=== PATIENT | male | born 1980 | race Caucasian/White ===

== ENCOUNTER 2022-10-26 18:56 | Emergency (ER) | payer OTHER, SELFPAY ==
[2022-10-26] VITALS (7 sets, daily range): BP systolic 132–152; BP diastolic 74–104; PULSE 85–114; RESP 12–21; TEMP 36.9; O2SAT 96–98; BMI 38.0
--- NOTE | 2022-10-26 19:06 | DI.RAD.S_ITS ---
PROCEDURE: XR CHEST 1V INDICATIONS: chest pain TECHNIQUE: One view of the chest was acquired. COMPARISON: None. FINDINGS: Surgical changes and devices: None. Lungs and pleura: Lungs are clear. No pleural effusions or pneumothorax. Mediastinum: Mediastinal contours appear normal. Heart size is normal. Bones and chest wall: No suspicious bony lesions. Overlying soft tissues appear unremarkable. IMPRESSION: No acute cardiopulmonary abnormality. Dictated by: Star Hinojosa M.D. on 10/26/2022 at 20:24 Approved by: Star Hinojosa M.D. on 10/26/2022 at 20:24
[2022-10-26] MEDS: ASPIRIN 81 MG CHEW TAB 324 MG PO (19:09)
[2022-10-26 19:41] LABS: Add Manual Diff / Slide Review NO; Basophils Absolute Auto 100 /uL (0-100); Basophils Percent Auto 0.6 % (0-2); Eosinophils Absolute Auto 200 /uL (0-450); Eosinophils Percent Auto 1.5 % (2-4); Hematocrit 42.5 % (41-53); Hemoglobin 14.7 g/dL (13.5-17.5); Lymphocytes Absolute Auto 3900 /uL (1100-4500); Lymphocytes Percent Auto 35.7 % (25-40); Mean Corpuscular HGB Conc 34.7 % (30-36); Mean Corpuscular Hemoglobin 29.6 PG (26-34); Mean Corpuscular Volume 85.3 fL (80-100); Monocytes Absolute Auto 500 /uL (0-900); Monocytes Percent Auto 4.5 % (3-14); Neutrophils Absolute Auto 6300 /uL (1500-7000); Neutrophils Percent Auto 57.7 % (50-75); Platelet Count 264 X10^3/uL (150-400); Red Blood Cell Count 4.98 X10^6/uL (4.5-5.9); Red Cell Distribution Width 13.7 % (11.6-14.8); White Blood Cell Count 10.9 X10^3/uL (4.5-11.0)
[2022-10-26 19:53] LABS: Alanine Aminotransferase 36 IU/L (<50); Albumin 4.2 g/dL (3.5-5.0); Albumin Globulin Ratio 1.4 (1.0-2.8); Alkaline Phosphatase 66 U/L (38-126); Aspartate Aminotransferase 30 IU/L (17-59); BUN Creatinine Ratio 6.9 (6-22); Blood Urea Nitrogen 7 mg/dL (9-20); Calcium 9.2 mg/dL (8.4-10.2); Carbon Dioxide 25 mmol/L (22-32); Chloride 101 mmol/L (98-107); Creatine Kinase 87 U/L (55-170); Estimated Glomerular Filt Rate > 60 mL/min (>60); Globulin 3.1 g/dL (1.7-4.1); Glucose 130 mg/dL (70-100); HEMOLYSIS < 15 (0-50); Lipase 178 U/L (23-300); Magnesium 1.7 mg/dL (1.6-2.3); Potassium 3.2 mmol/L (3.4-5.1); Sodium 137 mmol/L (137-145); Total Protein 7.3 g/dL (6.3-8.2)
[2022-10-26 19:57] LABS: PTT Partial Thromboplastin Tim 31 SECONDS (26-36)
[2022-10-26 20:04] LABS: Troponin I < 0.012 ng/mL (0.01-0.034)
[2022-10-26 20:49] LABS: COVID19 -Nasal RAPID Negative (Negative)
--- NOTE | 2022-10-26 22:02 | PC.NURSE ---
reports current migraine, has history of migraines gets about 15 a month. Patient states it feels slightly mild for his migraines. Patient reports left chest pain radiates into left arm, neck and down to left middle finger. Denies recent injury or trauma but does have remote history of left pectoral muscle injury and has a chronic left chest pain which feels different then current chest pain. Denies SOB or diaphoresis.
[2022-10-26 22:38] LABS: Troponin I < 0.012 ng/mL (0.01-0.034)
--- NOTE | 2022-10-26 23:05 | ED.CHESTPAIN ---
HPI - Chest Pain General Chief Complaint: Chest Pain Stated Complaint: poss heart attack Time Seen by Provider: 10/26/22 23:04 Source: patient Mode of arrival: Ambulatory Limitations: no limitations History of Present Illness HPI narrative: Patient is a 42-year-old male history of hyperlipidemia, nightmares, anxiety presenting today with chest discomfort. He reports lying on his bed on the left side reading a book when he suddenly got sternal pain. Radiated over to the left side. Comes and goes lasting 5 minutes at a time. Sharp stabbing in nature. He reports receiving aspirin in the emergency department. He is not short of breath. He feels a little bit nauseous no vomiting. No headache. No abdominal pain. He is a former smoker he smoked for about 20 years a pack a day but quit 5 years ago. No family history acute coronary disease. Related Data Home Medications Medication Instructions Recorded Confirmed amitriptyline 10/26/22 atorvastatin 10 mg tablet mg PO BEDTIME 10/26/22 omeprazole 20 mg capsule,delayed 20 mg PO DAILY 10/26/22 10/26/22 release prazosin 2 mg capsule 6 mg PO BEDTIME 10/26/22 10/26/22 Allergies Allergy/AdvReac Type Severity Reaction Status Date / Time diphenhydramine Allergy Swelling Verified 10/26/22 18:59 [From Benadryl] of Lip/Tongue/Throat Review of Systems Review of Systems ROS Unobtainable: All systems reviewed & are unremarkable except as noted in HPI and below Patient History Social History Smoking Status: Current every day smoker Smoking Status: Current every day smoker tobacco type: vaping alcohol intake frequency: holidays/special occasions only Substance Use Type: marijuana Exam Initial Vital Signs Initial Vital Signs: Vital Signs Temperature 98.4 F 10/26/22 18:59 Pulse Rate 114 H 10/26/22 18:59 Respiratory Rate 20 10/26/22 18:59 Blood Pressure 152/104 H 10/26/22 18:59 Pulse Oximetry 97 10/26/22 18:59 Oxygen Delivery Method Room Air 10/26/22 18:59 GENERAL: Alert pleasant 42-year-old HEENT: Head atraumatic,EOMI, pupils reactive, face symmetric, moist mucous membranes CARDIOVASCULAR: Regular rate and rhythm without murmurs, rubs or gallops. Pain is not reproducible RESPIRATORY: Breath sounds equal bilaterally, no wheezes rales or rhonchi. ABDOMEN: Soft, nontender. Normoactive bowel sounds all 4 quadrants. No guarding or rebound. EXTREMITIES: Normal range of motion, no clubbing or edema. Neurovascularly intact NEUROLOGICAL: Alert and oriented x4. SKIN: Warm, dry, no laceration, no petechiae, no rashes or lesions. Scores HEART Score Heart Score history: Slightly Suspicious Heart Score EKG: Normal Heart Score Age: < 45 years old Heart Score risk factors: 1-2 risk factors Heart Score troponin: < or = to normal limit Heart Score Total: 1 Course Orders Ordered: ED Orders 10/26/22 21:58 Troponin I Stat 10/26/22 23:16 EKG-12 Lead Stat Discontinued Medications Aspirin (Aspirin 81 Mg Chew Tab) 324 mg PO NOW ONE Stop: 10/26/22 19:07 Last Admin: 10/26/22 19:09 Dose: 324 mg Documented By: LIONEL Ketorolac Tromethamine (Ketorolac 30 Mg/Ml Vial) 15 mg IV NOW ONE Stop: 10/26/22 23:20 Last Admin: 10/26/22 23:55 Dose: 15 mg Documented By: CROW Vital Signs Vital signs: Vital Signs - 8 hr 10/26/22 22:03 10/26/22 22:33 10/26/22 23:00 Pulse Rate 92 H 93 H Respiratory Rate 12 12 Blood Pressure 136/85 145/88 H Pulse Oximetry 98 97 Oxygen Delivery Method Room Air 10/26/22 23:00 10/26/22 23:30 10/26/22 23:31 Pulse Rate 93 H 87 86 Respiratory Rate 17 18 21 Blood Pressure Pulse Oximetry 97 96 96 Oxygen Delivery Method Room Air Room Air 10/26/22 23:31 10/26/22 23:34 10/26/22 23:34 Pulse Rate 85 Respiratory Rate 17 Blood Pressure 132/74 142/79 H Pulse Oximetry 96 Oxygen Delivery Method 10/27/22 00:00 10/27/22 00:00 10/27/22 00:02 Pulse Rate 87 Respiratory Rate 18 Blood Pressure 135/83 127/80 Pulse Oximetry 96 Oxygen Delivery Method Room Air 10/27/22 00:02 Pulse Rate 86 Respiratory Rate 15 Blood Pressure Pulse Oximetry 95 Oxygen Delivery Method MDM - Chest Pain Lab Data 10/26/22 19:20 10/26/22 19:20 Labs: Lab Results 10/26/22 10/26/22 10/26/22 Range/Units 19:20 19:20 19:20 WBC 10.9 (4.5-11.0) X10^3/uL RBC 4.98 (4.5-5.9) X10^6/uL Hgb 14.7 (13.5-17.5) g/dL Hct 42.5 (41-53) % MCV 85.3 (80-100) fL MCH 29.6 (26-34) PG MCHC 34.7 (30-36) % RDW 13.7 (11.6-14.8) % Plt Count 264 (150-400) X10^3/uL Neut % (Auto) 57.7 (50-75) % Lymph % (Auto) 35.7 (25-40) % [place] % (Auto) 4.5 (3-14) % Eos % (Auto) 1.5 L (2-4) % Baso % (Auto) 0.6 (0-2) % Neut # (Auto) 6300 (7221-1674) /uL Lymph # (Auto) 3900 (3045-7254) /uL [place] # (Auto) 500 (0-900) /uL Eos # (Auto) 200 (0-450) /uL Baso # (Auto) 100 (0-100) /uL PT 12.0 (10.1-12.7) SECONDS INR 1.0 (0.9-1.3) APTT 31 (26-36) SECONDS Sodium 137 (137-145) mmol/L Potassium 3.2 L (3.4-5.1) mmol/L Chloride 101 (98-107) mmol/L Carbon Dioxide 25 (22-32) mmol/L BUN 7 L (9-20) mg/dL Creatinine 1.02 (0.66-1.25) mg/dL Estimated GFR > 60 (>60) mL/min BUN/Creatinine Ratio 6.9 (6-22) Glucose 130 H (70-100) mg/dL Calcium 9.2 (8.4-10.2) mg/dL Magnesium 1.7 (1.6-2.3) mg/dL Total Bilirubin 1.0 (0.2-1.3) mg/dL AST 30 (17-59) IU/L ALT 36 (<50) IU/L Alkaline Phosphatase 66 (38-126) U/L Total Creatine Kinase 87 (55-170) U/L CK-MB (CK-2) TNP CK-MB (CK-2) Rel Index TNP Troponin I < 0.012 (0.01-0.034) ng/mL Total Protein 7.3 (6.3-8.2) g/dL Albumin 4.2 (3.5-5.0) g/dL Globulin 3.1 (1.7-4.1) g/dL Albumin/Globulin Ratio 1.4 (1.0-2.8) Lipase 178 (23-300) U/L SARS-CoV-2 (PCR) (Negative) 10/26/22 10/26/22 Range/Units 19:42 21:58 WBC (4.5-11.0) X10^3/uL RBC (4.5-5.9) X10^6/uL Hgb (13.5-17.5) g/dL Hct (41-53) % MCV (80-100) fL MCH (26-34) PG MCHC (30-36) % RDW (11.6-14.8) % Plt Count (150-400) X10^3/uL Neut % (Auto) (50-75) % Lymph % (Auto) (25-40) % [place] % (Auto) (3-14) % Eos % (Auto) (2-4) % Baso % (Auto) (0-2) % Neut # (Auto) (8970-5542) /uL Lymph # (Auto) (6525-2561) /uL [place] # (Auto) (0-900) /uL Eos # (Auto) (0-450) /uL Baso # (Auto) (0-100) /uL PT (10.1-12.7) SECONDS INR (0.9-1.3) APTT (26-36) SECONDS Sodium (137-145) mmol/L Potassium (3.4-5.1) mmol/L Chloride (98-107) mmol/L Carbon Dioxide (22-32) mmol/L BUN (9-20) mg/dL Creatinine (0.66-1.25) mg/dL Estimated GFR (>60) mL/min BUN/Creatinine Ratio (6-22) Glucose (70-100) mg/dL Calcium (8.4-10.2) mg/dL Magnesium (1.6-2.3) mg/dL Total Bilirubin (0.2-1.3) mg/dL AST (17-59) IU/L ALT (<50) IU/L Alkaline Phosphatase (38-126) U/L Total Creatine Kinase (55-170) U/L CK-MB (CK-2) CK-MB (CK-2) Rel Index Troponin I < 0.012 (0.01-0.034) ng/mL Total Protein (6.3-8.2) g/dL Albumin (3.5-5.0) g/dL Globulin (1.7-4.1) g/dL Albumin/Globulin Ratio (1.0-2.8) Lipase (23-300) U/L SARS-CoV-2 (PCR) Negative (Negative) Imaging Data Chest x-ray: Radiologist's Impression: PROCEDURE:? XR CHEST 1V ? INDICATIONS:? chest pain ? TECHNIQUE:? One view of the chest was acquired.? ? COMPARISON:? None. ? FINDINGS:? ? Surgical changes and devices:? None.? ? Lungs and pleura:? Lungs are clear.? No pleural effusions or pneumothorax.? ? Mediastinum:? Mediastinal contours appear normal.? Heart size is normal.? ? Bones and chest wall:? No suspicious bony lesions.? Overlying soft tissues appear unremarkable.? ? IMPRESSION:? No acute cardiopulmonary abnormality. ? ? ? Dictated by: Star Hinojosa M.D. on 10/26/2022 at 20:24 ? ? ECG Data Interpretation: Normal sinus rhythm rate 102 MA interval 160 QRS 94 QTC 456 Q-wave noted lead [address] changes T-wave inversions EKG 2. Sinus rhythm rate 84 no ischemic changes similar to prior MDM Narrative Medical decision making narrative: Patient 42-year-old male history of hyperlipidemia presents today with chest pain which started while he was reading. It does seem to radiate over to the left side. Pain improved with aspirin and Toradol. Hurts score is 1 2- troponins and no EKG changes. Patient's symptoms were not necessarily related to cardiac issue. He overall appears comfortable. At this time recommend close outpatient follow-up and possible outpatient testing and to return if needed further evaluation Differential diagnosis include acute coronary syndrome, pneumonia, pulmonary embolism congestive heart failure pneumothorax Discharge Plan Departure Patient Disposition: Home Clinical Impression: Atypical chest pain Instructions: DI for Atypical Chest Pain Activity Restrictions/Additional Instructions: *You have been diagnosed with atypical chest pain *What to do: At this time please discuss with your primary care in regards to further chest pain workup including stress test and echocardiogram *Continue to take medications as directed *Follow up with your primary care provider in 2-3 days or call [phone] *Return to ER if you should have increasing chest pain shortness of breath or any new, worsening or concerning symptoms Prescriptions: No Action atorvastatin 10 mg Tablet PO BEDTIME omeprazole 20 mg Capsule,Delayed Release(Dr/Ec) 20 mg PO DAILY prazosin 2 mg Capsule 6 mg PO BEDTIME amitriptyline Patient Comments: For anxiety, depression, mood stabilizer Stand Alone Forms: Patient Portal/API
[2022-10-26] MEDS: KETOROLAC 30 MG/ML VIAL 15 MG IV (23:55)
[2022-10-27] VITALS: BP 135/83; PULSE 87; RESP 18; O2SAT 96
[2022-10-27 00:02] VITALS: BP 127/80; PULSE 86; RESP 15; O2SAT 95
== END 2022-10-27 00:19 | disposition home or self-care (01) ==
PROVIDERS: Emergency Provider Emergency Medicine
DX: R07.89 Other chest pain (principal); Z20.822 Contact with and (suspected) exposure to COVID-19
CPT/HCPCS: 36415; 71045; 80053; 82550; 83690; 83735; 84484; 85025; 85610; 85730; 87635; 93005; 93010; 96374; 99284; C9803; J1885

== ENCOUNTER 2024-08-26 12:31 | Emergency (ER) | payer OTHER, SELFPAY ==
[2024-08-26 12:37] VITALS: BP 168/98; PULSE 100; RESP 18; TEMP 36.5; O2SAT 97; BMI 38.0
--- NOTE | 2024-08-26 12:57 | PC.NURSE ---
Patient reports rolling over in bed last Monday and hearing a pop in the area of his left arm. Since then he has had constant pain in his left arm from his neck down to his fingertips. Denies n/t, CMS+. No distinct foci for the pain. Has hx of chronic pain in the left chest/arm from a remote pectoral injury. He has been using oxycodone for pain relief without much reduction in pain level.
--- NOTE | 2024-08-26 14:30 | ED_ITS ---
<Statement entered by Dread Dobbs DO - 08/26/24 14:53> Dr. Dobbs: I was immediately available in the department for consultation. I did not actually see the patient. HPI - Extremity Injury (Upper) General Chief Complaint: Extremity Injury, Upper Stated Complaint: arm px x1wk Time Seen by Provider: 08/26/24 12:51 History of Present Illness HPI narrative: 43-year-old male presents to the ED with 1 week of right arm pain. Patient states that his pain started after he turned in bed last week. Patient states he heard a pop, but unsure where the pop came from. Since then, patient states his right arm has been painful. Patient took some oxycodone so he could sleep. Patient states he is unable to tolerate ibuprofen due to his stomach. Patient does tolerate a leave. No numbness, tingling, weakness. No trauma. Patient does have pre-existing left arm pain due to prior trauma. Related Data Home Medications Medication Instructions Recorded Confirmed amitriptyline 10/26/22 atorvastatin 10 mg tablet mg PO BEDTIME 10/26/22 omeprazole 20 mg capsule,delayed 20 mg PO DAILY 10/26/22 10/26/22 release prazosin 2 mg capsule 6 mg PO BEDTIME 10/26/22 10/26/22 Allergies Allergy/AdvReac Type Severity Reaction Status Date / Time diphenhydramine Allergy Swelling Verified 10/26/22 18:59 [From Benadryl] of Lip/Tongue/Throat Review of Systems Constitutional Constitutional: Denies chills, Denies fatigue, Denies fever(s), Denies frequent falls, Denies lethargy and Denies weakness Eyes Eyes: Denies change in vision, Denies eye discharge, Denies irritation and Denies loss of vision ENT Ears, Nose, Mouth, and Throat: Denies change in voice, Denies dizziness, Denies neck pain, Denies sore throat and Denies throat swelling Cardiovascular Cardiovascular: Denies chest pain, Denies irregular heart rhythm, Denies lightheadedness, Denies palpitations, Denies dyspnea, Denies dyspnea on exertion and Denies orthopnea Respiratory Respiratory: Denies cough, Denies dyspnea, Denies dyspnea on exertion and Denies wheezing Gastrointestinal Gastrointestinal: Denies abdominal pain, Denies change in bowel habits, Denies diarrhea, Denies nausea and Denies vomiting Musculoskeletal Musculoskeletal: Denies neck pain and Denies numbness Comments: Right arm pain Integumentary/Breasts Skin/Breast: Denies pruritus, Denies erythema, Denies rash and Denies wounds Neurologic Neurologic: Denies behavioral changes, Denies confusion, Denies dizziness, Denies frequent falls, Denies loss of vision, Denies numbness and Denies weakness Psychiatric Psychiatric: Denies anxiety, Denies behavioral changes, Denies confusion, Denies depression, Denies homicidal ideation and Denies suicidal ideation Endocrine Endocrine: Denies fatigue, Denies flushing and Denies palpitations Hematologic/Lymphatic Hematologic/Lymphatic: Denies easy bruising Allergic/Immunologic Allergic/Immunologic: Denies urticaria, Denies throat swelling and Denies wheezing Patient History Social History Smoking Status: Current every day smoker Smoking Status: Current every day smoker tobacco type: vaping alcohol intake frequency: holidays/special occasions only Exam Narrative Exam Narrative: Const General:?cooperative, healthy appearing and comfortable [facility] Head:?normal to inspection Ears:?hearing grossly normal bilaterally Nose:?external nose normal Face and sinus:?normal facial exam and sinuses nontender Mouth:?oral mucosae normal Throat:?posterior oropharynx normal Eyes General:?appearance normal, both eyes and all related structures Neck Neck:?normal visual inspection and no lymphadenopathy noted Resp Effort & Inspection:?normal respiratory effort Auscultation:?clear to auscultation bilaterally Cardio Rate:?regular rate Rhythm:?regular rhythm Musculoskeletal No tenderness to palpation, no deformities. There is full range of motion. Strength and sensation is intact. Neurovascularly intact. No midline tenderness to palpation. Neuro General:?patient alert, patient awake and patient oriented x3 Initial Vital Signs Initial Vital Signs: Vital Signs Temperature 97.7 F 08/26/24 12:37 Pulse Rate 100 H 08/26/24 12:37 Respiratory Rate 18 08/26/24 12:37 Blood Pressure 168/98 H 08/26/24 12:37 Pulse Oximetry 97 08/26/24 12:37 Oxygen Delivery Method Room Air 08/26/24 12:37 Course Vital Signs Vital signs: Vital Signs - 8 hr 08/26/24 12:37 Temperature 97.7 F Pulse Rate 100 H Respiratory Rate 18 Blood Pressure 168/98 H Pulse Oximetry 97 Oxygen Delivery Method Room Air MDM - Extremity Injury (Upper) MDM Narrative Medical decision making narrative: 43-year-old male presents to the ED with 1 week of right arm pain. No trauma, no tenderness to palpation. Full range of motion. Patient's symptoms likely due to a musculoskeletal sprain/strain versus cervical radiculopathy versus other. No concern for bony injury. No imaging indicated at this time. Recommend continuing a leave, lidocaine patches. Recommend follow-up with PCP as soon as possible. Recommend PT. ED return precautions discussed with patient. Patient verbalized understanding. Medical records reviewed: Yes Discharge Plan Departure Patient Disposition: Home Clinical Impression: Neck pain Instructions: DI for Neck Pain Activity Restrictions/Additional Instructions: You were evaluated in the ED today for arm and neck pain. It appears that your pain could be from a musculoskeletal sprain/strain versus a neck issue. You may take naproxen, apply lidocaine patches, apply heat. Please follow-up with your PCP as soon as possible for further evaluation and physical therapy referrals. Return to the ED if you have worsening symptoms, numbness, tingling, weakness. Prescriptions: No Action atorvastatin 10 mg Tablet PO BEDTIME omeprazole 20 mg Capsule,Delayed Release(Dr/Ec) 20 mg PO DAILY prazosin 2 mg Capsule 6 mg PO BEDTIME amitriptyline Patient Comments: For anxiety, depression, mood stabilizer Referrals: Miscellaneous,[facility] [Primary Care Provider] - Stand Alone Forms: Patient Portal/API/Survey
--- NOTE | 2024-08-26 14:42 | PC.NURSE ---
Upon receiving his discharge paperwork, the patient verbalized displeasure with his visit stating I waited here for an ungodly amount of time only to be told to do all the same things I am already doing. Your doctor is joe reyes.
== END 2024-08-26 14:44 | disposition home or self-care (01) ==
PROVIDERS: Emergency Provider Student in an Organized Health Care Education/Training Program
DX: M79.601 Pain in right arm (principal); M54.2 Cervicalgia
CPT/HCPCS: 99281